=== PATIENT | male | born 1985 | race Two or more races ===

== ENCOUNTER 2020-11-03 07:18 | Day surgery (SDC) | payer OTHER | END 2020-11-03 18:00 | disposition home or self-care (01) | LOC: CIR.AMB 07:18 | PROVIDERS: ATTEND Orthopaedic Surgery Hand Surgery | DX: S51.822D Laceration with foreign body of left forearm, subsequent encounter (principal); Z20.822 Contact with and (suspected) exposure to COVID-19 ==